=== PATIENT | male | born 1985 | race Caucasian/White ===

== ENCOUNTER 2018-07-02 02:34 | Emergency (ER) | payer OTHER ==
[~2018-07-02] VITALS: Ht 177.8 cm; Wt 84.5 kg
[2018-07-02 02:46] VITALS: BP 122/71; PULSE 119; RESP 26; Ht 177.8 cm; Wt 84.5 kg
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
== END 2018-07-02 04:02 | disposition home or self-care (01) ==
LOC: FTE 02:34
DX: F41.1 Generalized anxiety disorder (principal); R00.0 Tachycardia, unspecified; Z86.59 Personal history of other mental and behavioral disorders
CPT/HCPCS: 93005; Z7502